=== PATIENT | male | born 1945 | race Caucasian/White ===

== ENCOUNTER 2020-07-16 14:03 | Emergency (ER) | payer MEDICARE, OTHER ==
--- NOTE | 2020-07-16 14:38 | EDM.PDOC ---
ED HPI GENERAL MEDICAL PROBLEM - General Chief Complaint: Syncope Stated Complaint: MEDICAL VIA [facility]TH Time Seen by Provider: 07/16/20 14:26 Source of Information: Reports: Patient, Family, RN Notes Reviewed History Limitations: Reports: No Limitations - History of Present Illness INITIAL COMMENTS - FREE TEXT/NARRATIVE: 75-year-old gentleman presents emergency department today following a syncopal event, he states he was home never had an event like this before. Head did have a couple of sips of beer just prior next thing he remembers is waking up in the ambulance. He denies any specific weakness denies any seizure history witnessed event states that he appeared to just pass out there was no visible movement of upper or lower extremities. EMS crew states by the time he arrived he was starting to follow commands and becoming responsive and orientated - Related Data Allergies Allergy/AdvReac Type Severity Reaction Status Date / Time No Known Allergies Allergy Verified 07/16/20 14:07 Home Meds: Home Meds Aspirin [Ecotrin EC] 81 mg PO DAILY 07/16/20 [History] Folic Acid 1 mg PO DAILY 07/16/20 [History] Ketoconazole [Ketoconazole 2%] 1 applic TOP DAILY 07/16/20 [History] Loratadine [Claritin] 10 mg PO DAILY 07/16/20 [History] Nortriptyline 25 mg PO BEDTIME 07/16/20 [History] Omeprazole Magnesium [Prilosec Otc] 20 mg PO DAILY 07/16/20 [History] Potassium Chloride 15 ml PO DAILY 07/16/20 [History] Verapamil [Verapamil SR (24 Hr)] 360 mg PO DAILY 07/16/20 [History] carBAMazepine [Carbamazepine] 200 mg PO BEDTIME 07/16/20 [History] diazePAM [Valium] 2.5 mg PO BID 07/16/20 [History] diazePAM [Valium] 5 mg PO BEDTIME 07/16/20 [History] hydrOXYzine HCL [Hydroxyzine HCl] 50 mg PO DAILY 07/16/20 [History] Past Medical History HEENT History: Reports: Impaired Vision Cardiovascular History: Reports: High Cholesterol, Hypertension Musculoskeletal History: Reports: Back Pain, Chronic Psychiatric History: Reports: Anxiety, Depression, PTSD - Past Surgical History GI Surgical History: Reports: Hernia, Abdominal Social & Family History - Alcohol Use Days Per Week of Alcohol Use: 7 Number of Drinks Per Day: 3 Total Drinks Per Week: 21 - Recreational Drug Use Recreational Drug Use: No ED ROS GENERAL - Review of Systems Review Of Systems: See Below Constitutional: Reports: No Symptoms HEENT: Reports: No Symptoms Respiratory: Reports: No Symptoms Cardiovascular: Reports: Syncope GI/Abdominal: Reports: No Symptoms ED EXAM, GENERAL - Physical Exam Exam: See Below Exam Limited By: No Limitations General Appearance: Alert, WD/WN, No Apparent Distress Respiratory/Chest: No Respiratory Distress, Lungs Clear, Normal Breath Sounds, No Accessory Muscle Use, Chest Non-Tender Cardiovascular: Regular Rate, Rhythm, No Murmur GI/Abdominal: Soft, Non-Tender Extremities: No Pedal Edema #1 Interpretation EKG Date: 07/16/20 Rhythm: NSR [place]: Normal P-Wave: Present QRS: Normal ST-T: Normal QT: Normal Comparison: NA - No Prior EKG Course - Vital Signs Last Recorded V/S: Last Vital Signs Temp 97.4 F 07/16/20 14:17 Pulse 54 L 07/16/20 15:20 Resp 11 L 07/16/20 15:20 BP 139/49 L 07/16/20 15:20 Pulse Ox 98 07/16/20 15:20 Orthostatic Blood Pressure [ 129/51 Standing] Orthostatic Blood Pressure [ 131/56 Sitting] - Orders/Labs/Meds Orders: Active Orders 24 hr Category Date Time Status Cardiac Monitoring [RC] .As Directed Care 07/16/20 14:35 Active EKG Documentation Completion [RC] ASDIRECTED Care 07/16/20 14:35 Active EKG 12 Lead [EK] Stat Ther 07/16/20 14:35 Ordered Labs: Laboratory Tests 07/16/20 07/16/20 07/16/20 Range/Units 14:49 14:49 14:49 WBC 7.4 (4.5-11.0) K/uL RBC 3.84 L (4.30-5.90) M/uL Hgb 11.6 L (12.0-15.0) g/dL Hct 34.2 L (40.0-54.0) % MCV 89 (80-98) fL MCH 30 (27-31) pg MCHC 34 (32-36) % Plt Count 264 (150-400) K/uL Neut % (Auto) 76 H (36-66) % Lymph % (Auto) 11 L (24-44) % [place] % (Auto) 10 H (2-6) % Eos % (Auto) 3 (2-4) % Baso % (Auto) 0 (0-1) % D-Dimer, Quantitative 473.21 (0.0-500.0) ng/mL Sodium 136 L (140-148) mmol/L Potassium 4.2 (3.6-5.2) mmol/L Chloride 96 L (100-108) mmol/L Carbon Dioxide 30 (21-32) mmol/L Anion Gap 14.2 H (5.0-14.0) mmol/L BUN 15 (7-18) mg/dL Creatinine 1.1 (0.8-1.3) mg/dL Est Cr Clr Drug Dosing 54.48 mL/min Estimated GFR (MDRD) > 60 (>60) Glucose 109 H (74-106) mg/dL Calcium 9.4 (8.5-10.1) mg/dL Troponin I < 0.017 (0.000-0.056) ng/mL Ethyl Alcohol mg/dL 07/16/20 Range/Units 14:49 WBC (4.5-11.0) K/uL RBC (4.30-5.90) M/uL Hgb (12.0-15.0) g/dL Hct (40.0-54.0) % MCV (80-98) fL MCH (27-31) pg MCHC (32-36) % Plt Count (150-400) K/uL Neut % (Auto) (36-66) % Lymph % (Auto) (24-44) % [place] % (Auto) (2-6) % Eos % (Auto) (2-4) % Baso % (Auto) (0-1) % D-Dimer, Quantitative (0.0-500.0) ng/mL Sodium (140-148) mmol/L Potassium (3.6-5.2) mmol/L Chloride (100-108) mmol/L Carbon Dioxide (21-32) mmol/L Anion Gap (5.0-14.0) mmol/L BUN (7-18) mg/dL Creatinine (0.8-1.3) mg/dL Est Cr Clr Drug Dosing mL/min Estimated GFR (MDRD) (>60) Glucose (74-106) mg/dL Calcium (8.5-10.1) mg/dL Troponin I (0.000-0.056) ng/mL Ethyl Alcohol < 3 mg/dL Departure - Departure Time of Disposition: 15:41 Disposition: Home, Self-Care 01 Condition: Fair Clinical Impression: Syncope Qualifiers: Syncope type: vasovagal syncope Qualified Code(s): R55 - Syncope and collapse Instructions: Syncope, [id number] Referrals: PCP,None [Primary Care Provider] - Forms: ED Department Discharge Additional Instructions: Continue with your regular medications please followup with your primary care provider in 3-5 days if not better, please call return to the emergency department with worsening of symptoms., Sepsis Event Note (ED) - Evaluation Sepsis Screening Result: No Definite Risk - Focused Exam Vital Signs: Vital Signs Temp Pulse Resp BP Pulse Ox 07/16/20 15:20 54 L 11 L 139/49 L 98 07/16/20 14:17 97.4 F 52 L 16 121/60 96 - My Orders Last 24 Hours: My Active Orders 07/16/20 14:35 Cardiac Monitoring [RC] .As Directed EKG Documentation Completion [RC] ASDIRECTED EKG 12 Lead [EK] Stat - Assessment/Plan Last 24 Hours: My Active Orders 07/16/20 14:35 Cardiac Monitoring [RC] .As Directed EKG Documentation Completion [RC] ASDIRECTED EKG 12 Lead [EK] Stat Plan: Assessment Acuity = acute Site and laterality = syncopal event Etiology = probably vasovagal Manifestations = none Location of injury = Home Lab values = hemoglobin low 11.6 consistent with normochromic anemia D-dimer normal for 73 troponin was negative alcohol was negative EKG demonstrates normal sinus rhythm Plan I did review lab work EKG results with him and follow-up with his primary care doctor in the next 3 to 5 days if no improvement This note was dictated using [id number] voice recognition software please call with any questions on syntax or grammar.
== END 2020-07-16 15:57 | disposition home or self-care (01) ==
LOC: JP.ED 14:03
DX: R55 Syncope and collapse (principal); I10 Essential (primary) hypertension; Z79.82 Long term (current) use of aspirin; Z79.899 Other long term (current) drug therapy
CPT/HCPCS: 36415; 80048; 80307; 84484; 85025; 85379; 93005; 99283; 99284-25

== ENCOUNTER 2020-07-26 06:32 | Day surgery (SDC) | payer OTHER ==
[2020-07-26] MEDS: Sodium Chloride 0.9% 10 ML Syringe FLUSH PRN (06:55)
--- NOTE | 2020-07-26 13:19 | OR ---
DATE OF PROCEDURE: 07/26/2020 SURGEON: Fannie Fitch MD POSTOPERATIVE CARE: Postoperative care will be provided mainly at the [address] [place] [address] [facility] in conjunction with [facility]. PREOPERATIVE DIAGNOSIS: Cataract, left eye. POSTOPERATIVE DIAGNOSIS: Cataract, left eye. PROCEDURE: Phacoemulsification with intraocular lens placement, left eye. ANESTHESIA: Topical and intracameral. ESTIMATED BLOOD LOSS: Minimal. COMPLICATIONS: None. PATHOLOGY SPECIMENS: None. SURGICAL FINDINGS: None. INDICATION FOR PROCEDURE: The patient is a 75-year-old male with history of a visually significant cataract in the left eye, which interfered with activities of daily living. This consisted of a nuclear sclerosis cataract. Following careful discussion of the risks, benefits and alternatives to cataract extraction with intraocular lens placement including blindness and , the patient elected to proceed, and informed, written consent was obtained prior to the procedure. DESCRIPTION OF THE PROCEDURE: The patient was previously identified, and a aayush placed above the left eye. All sources, including the patient, indicated that the left eye was the correct eye. The patient was subsequently taken to the operating room where standard monitors were applied. The patient was then prepped and draped in the usual sterile fashion for ophthalmic surgery. Attention was first directed at the 12 o'clock position where a paracentesis port was fashioned. Shugar solution followed by Viscoat was instilled into the eye. Attention was then directed to the 8:30 position where a triplanar incision was made in a near-clear manner using a keratome. A continuous capsulorrhexis was then made using a combination of the cystotome and Utrata forceps. Hydrodissection was achieved using a balanced salt solution, and the lens rotated nicely. Phacoemulsification was then done using a modified [id number]-bugnptd technique without complication. Phaco time was 5.50 CDE. The remaining cortex was removed using the irrigation/aspiration handpiece. Provisc was then instilled into the eye. A Technis lens, model DCB00, at 23.0 Diopters was then placed in the capsular bag using an [employer] injector. The remaining viscoelastic was removed using the irrigation/aspiration forceps. All wounds were then checked and found to be watertight. The lid speculum and drapes were removed. Maxitrol ointment was placed in the patient's left eye, and the eye was shielded. The patient tolerated the procedure well. The patient was instructed to follow up tomorrow. All needle and sponge counts were correct at the end of the procedure. There were no surgical findings. Fannie Fitch MD /[id number]
== END 2020-07-26 08:30 | disposition home or self-care (01) ==
LOC: JP.SDS 06:32
PROVIDERS: ATTEND Ophthalmology
DX: H25.12 Age-related nuclear cataract, left eye (principal)
CPT/HCPCS: 66984; V2632

== ENCOUNTER 2020-08-09 06:19 | Day surgery (SDC) | payer OTHER ==
[2020-08-09] MEDS: Sodium Chloride 0.9% 10 ML Syringe FLUSH PRN (07:14)
--- NOTE | 2020-08-09 15:06 | OR ---
DATE OF PROCEDURE: 08/09/2020 SURGEON: Fannie Fitch MD POSTOPERATIVE CARE: Postoperative care will be provided mainly at the [address] [place] [address] [facility] in conjunction with [facility]. PREOPERATIVE DIAGNOSIS: Cataract, right eye. POSTOPERATIVE DIAGNOSIS: Cataract, right eye. PROCEDURE: Phacoemulsification with intraocular lens placement, right eye. ANESTHESIA: Topical and intracameral. ESTIMATED BLOOD LOSS: Minimal. COMPLICATIONS: None. PATHOLOGY SPECIMENS: None. SURGICAL FINDINGS: None. INDICATION FOR PROCEDURE: The patient is a 75-year-old male with history of a visually significant cataract in the right eye, which interfered with activities of daily living. This consisted of a nuclear sclerosis cataract. Following careful discussion of the risks, benefits and alternatives to cataract extraction with intraocular lens placement including blindness and , the patient elected to proceed, and informed, written consent was obtained prior to the procedure. DESCRIPTION OF THE PROCEDURE: The patient was previously identified, and a aayush placed above the right eye. All sources, including the patient, indicated that the right eye was the correct eye. The patient was subsequently taken to the operating room where standard monitors were applied. The patient was then prepped and draped in the usual sterile fashion for ophthalmic surgery. Attention was first directed at the 12 o'clock position where a paracentesis port was fashioned. Shugar solution followed by Viscoat was instilled into the eye. Attention was then directed to the 8:30 position where a triplanar incision was made in a near-clear manner using a keratome. A continuous capsulorrhexis was then made using a combination of the cystotome and Utrata forceps. Hydrodissection was achieved using a balanced salt solution, and the lens rotated nicely. Phacoemulsification was then done using a modified [id number]-aol-[id number] technique without complication. Phaco time was 5.51 CDE. The remaining cortex was removed using the irrigation/aspiration handpiece. Provisc was then instilled into the eye. A Technis lens, model DCB00, at 23.0 diopters was then placed in the capsular bag using an [place] injector. The remaining viscoelastic was removed using the irrigation/aspiration forceps. All wounds were then checked and found to be watertight. The lid speculum and drapes were removed. Maxitrol ointment was placed in the patient's right eye, and the eye was shielded. The patient tolerated the procedure well. The patient was instructed to follow up tomorrow. All needle and sponge counts were correct at the end of the procedure. Fannie Fitch MD /[id number]
== END 2020-08-09 08:06 | disposition home or self-care (01) ==
LOC: JP.SDS 06:19
PROVIDERS: ATTEND Ophthalmology
DX: H26.9 Unspecified cataract (principal); K21.9 Gastro-esophageal reflux disease without esophagitis; Z88.8 Allergy status to other drugs, medicaments and biological substances
CPT/HCPCS: V2632

== ENCOUNTER 2020-08-28 17:10 | Emergency (ER) | payer OTHER ==
--- NOTE | 2020-08-28 18:16 | EDM.PDOC ---
ED HPI GENERAL MEDICAL PROBLEM - General Chief Complaint: General Stated Complaint: FEET AND HANDS ARE NUMB Time Seen by Provider: 08/28/20 17:45 Source of Information: Reports: Patient, Family History Limitations: Reports: No Limitations - History of Present Illness INITIAL COMMENTS - FREE TEXT/NARRATIVE: 75-year-old combat has been treated with Valium chronically for PTSD and anxiety, has an appointment coming up electronically in 4 days and only has 1 dose of medication left. He became anxious about this today, started hyperventilating and developed some hand and foot numbness. He feels somewhat better now but called his son to bring him in to be evaluated. Palpitations but no chest pain. He now feels better that he is here. Onset: Other (Symptoms are chronic, intermittent) Location: Reports: Generalized (Mostly numbness in his hands and feet are what worried him today) - Related Data Allergies Allergy/AdvReac Type Severity Reaction Status Date / Time No Known Allergies Allergy Verified 08/28/20 17:26 Home Meds: Home Meds Aspirin [Ecotrin EC] 81 mg PO DAILY 07/16/20 [History] Folic Acid 1 mg PO DAILY 07/16/20 [History] Ketoconazole [Ketoconazole 2%] 1 applic TOP DAILY 07/16/20 [History] Loratadine [Claritin] 10 mg PO DAILY 07/16/20 [History] Nortriptyline 25 mg PO DAILY 07/16/20 [History] Omeprazole Magnesium [Prilosec Otc] 20 mg PO DAILY 07/16/20 [History] Potassium Chloride 15 ml PO DAILY 07/16/20 [History] Verapamil [Verapamil SR (24 Hr)] 180 mg PO BID 07/16/20 [History] carBAMazepine [Carbamazepine] 200 mg PO BEDTIME 07/16/20 [History] diazePAM [Valium] 5 mg PO BID 07/16/20 [History] hydrOXYzine HCL [Hydroxyzine HCl] 50 mg PO DAILY 07/16/20 [History] Simvastatin [Zocor] 10 mg PO BEDTIME 08/07/20 [History] Past Medical History HEENT History: Reports: Cataract, Impaired Vision Cardiovascular History: Reports: High Cholesterol, Hypertension Gastrointestinal History: Reports: GERD Musculoskeletal History: Reports: Back Pain, Chronic, Other (See Below) Other Musculoskeletal History: right hip pain Psychiatric History: Reports: Anxiety, Depression, PTSD Dermatologic History: Reports: Other (See Below) Other Dermatologic History: rash - Infectious Disease History Infectious Disease History: Reports: Chicken Pox, Measles - Past Surgical History HEENT Surgical History: Reports: Cataract Surgery Cardiovascular Surgical History: Reports: None GI Surgical History: Reports: Hernia, Abdominal Musculoskeletal Surgical History: Reports: None Social & Family History - Caffeine Use Caffeine Use: Reports: Coffee - Recreational Drug Use Recreational Drug Use: No ED ROS GENERAL - Review of Systems Review Of Systems: See Below Constitutional: Denies: Fever, Chills HEENT: Denies: Vision Change Cardiovascular: Reports: Palpitations. Denies: Chest Pain GI/Abdominal: Denies: Abdominal Pain, Nausea, Vomiting Skin: Denies: Diaphoresis Neurological: Reports: Paresthesia (Hands and feet) Psychiatric: Reports: Anxiety, Other (PTSD) ED EXAM, GENERAL - Physical Exam Exam: See Below Exam Limited By: No Limitations General Appearance: Alert, Anxious. No: Mild Distress Eye Exam: Bilateral Eye: Normal Inspection Head: Atraumatic Neck: Supple, Non-Tender Respiratory/Chest: Lungs Clear Cardiovascular: Regular Rate, Rhythm. No: Extra Beats GI/Abdominal: Non-Tender Extremities: Normal Inspection, No Pedal Edema Neurological: Alert, Oriented, No Motor/Sensory Deficits Course - Vital Signs Last Recorded V/S: Last Vital Signs Temp 99.7 F 08/28/20 17:33 Pulse 82 08/28/20 17:33 Resp 16 08/28/20 17:33 BP 164/72 H 08/28/20 17:33 Pulse Ox 96 08/28/20 17:33 - Re-Assessments/Exams Free Text/Narrative Re-Assessment/Exam: 08/28/20 18:36 Patient was given 20 additional doses of Valium to take 1 twice daily which should get him through to his mail order medications. A BICYCLE TECHNICIAN search was done on the patient and he is very compliant with medicine. Departure - Departure Time of Disposition: 18:27 Disposition: Home, Self-Care 01 Clinical Impression: Chronic anxiety - Discharge Information Instructions: Managing Anxiety, Adult Referrals: Narda Laurent DIRECTOR [employer] [Primary Care Provider] - Forms: ED Department Discharge Care Plan Goals: Continue your Valium as directed, and follow-up as scheduled. Return if worsenin g despite treatment. Sepsis Event Note (ED) - Evaluation Sepsis Screening Result: No Definite Risk - Focused Exam Vital Signs: Vital Signs Temp Pulse Resp BP Pulse Ox 08/28/20 17:33 99.7 F 82 16 164/72 H 96
== END 2020-08-28 18:27 | disposition home or self-care (01) ==
LOC: JP.ED 17:10
DX: F41.9 Anxiety disorder, unspecified (principal); E78.00 Pure hypercholesterolemia, unspecified; I10 Essential (primary) hypertension; Z79.82 Long term (current) use of aspirin; Z79.899 Other long term (current) drug therapy; K21.9 Gastro-esophageal reflux disease without esophagitis
CPT/HCPCS: 99283

== ENCOUNTER 2020-10-25 14:42 | Emergency (ER) | payer OTHER ==
[2020-10-25] MEDS ORDERED: Ondansetron 4 MG/2 ML SDV IVPUSH ONE (14:53)
[2020-10-25] MEDS ORDERED: Sodium Chloride 0.9% 1,000 ML IV SCH (15:30)
--- NOTE | 2020-10-25 15:40 | EDM.PDOC ---
ED HPI GENERAL MEDICAL PROBLEM - General Chief Complaint: Syncope Stated Complaint: MEDICAL [facility]IA [facility] Time Seen by Provider: 10/25/20 15:37 Source of Information: Reports: Patient History Limitations: Reports: No Limitations - History of Present Illness INITIAL COMMENTS - FREE TEXT/NARRATIVE: pt arrived by ambulamce. He was found on the sidewalk not reponding normally. No one knows how long he had been there. He was vomiting on arrival. Onset: Today, Sudden Duration: Hour(s): Location: Reports: Other (pt fell and hit his head on the cement. ) Associated Symptoms: Reports: Confusion, Diaphoresis, Nausea/Vomiting, Weakness Headache Pain Score (Numeric/FACES): 2 - Related Data Allergies Allergy/AdvReac Type Severity Reaction Status Date / Time No Known Allergies Allergy Verified 10/25/20 14:55 Home Meds: Home Meds Aspirin [Ecotrin EC] 81 mg PO DAILY 07/16/20 [History] Folic Acid 1 mg PO DAILY 07/16/20 [History] Ketoconazole [Ketoconazole 2%] 1 applic TOP DAILY 07/16/20 [History] Nortriptyline 25 mg PO DAILY 07/16/20 [History] Omeprazole Magnesium [Prilosec Otc] 20 mg PO DAILY 07/16/20 [History] Potassium Chloride 15 ml PO DAILY 07/16/20 [History] Verapamil [Verapamil SR (24 Hr)] 180 mg PO BID 07/16/20 [History] carBAMazepine [Carbamazepine] 200 mg PO BEDTIME 07/16/20 [History] diazePAM [Valium.] 5 mg PO BID 07/16/20 [History] hydrOXYzine HCL [Hydroxyzine HCl] 50 mg PO DAILY 07/16/20 [History] Simvastatin [Zocor] 10 mg PO BEDTIME 08/07/20 [History] Past Medical History HEENT History: Reports: Cataract, Impaired Vision Cardiovascular History: Reports: High Cholesterol, Hypertension Gastrointestinal History: Reports: GERD Musculoskeletal History: Reports: Back Pain, Chronic, Other (See Below) Other Musculoskeletal History: right hip pain Neurological History: Reports: Concussion Psychiatric History: Reports: Anxiety, Depression, PTSD Dermatologic History: Reports: Other (See Below) Other Dermatologic History: rash - Infectious Disease History Infectious Disease History: Reports: Chicken Pox, Measles - Past Surgical History HEENT Surgical History: Reports: Cataract Surgery Cardiovascular Surgical History: Reports: None GI Surgical History: Reports: Hernia, Abdominal Musculoskeletal Surgical History: Reports: None Social & Family History - Tobacco Use Tobacco Use Status *Q: Current Every Day Tobacco User Years of Tobacco use: 45 Packs/Tins Daily: 1 Used Tobacco, but Quit: No Second Hand Smoke Exposure: No - Caffeine Use Caffeine Use: Reports: Coffee, Soda - Alcohol Use Days Per Week of Alcohol Use: 7 Number of Drinks Per Day: 2 Total Drinks Per Week: 14 - Recreational Drug Use Recreational Drug Use: No ED ROS GENERAL - Review of Systems Review Of Systems: See Below Constitutional: Reports: Decreased Appetite HEENT: Reports: No Symptoms Respiratory: Reports: No Symptoms Cardiovascular: Reports: No Symptoms Endocrine: Reports: No Symptoms GI/Abdominal: Reports: Nausea, Vomiting : Reports: No Symptoms Musculoskeletal: Reports: No Symptoms Skin: Reports: No Symptoms Neurological: Reports: Headache, Trouble Speaking, Difficulty Walking, Weakness ED EXAM, NEURO - Physical Exam Exam: See Below Text/Narrative:: pt is a very lethargic pt with ahistory of being found lying on the cement in h is yard. He was not able to answer questions well. He does have a history of a seizure disorder. He had a juntional rhythm with a rate of 50 when he arrive. He has gradually gotten much better He is able to be up and ambulating. Exam Limited By: No Limitations General Appearance: Alert, Other (pupils equal and reactive) Ears: Normal TMs Nose: Normal Inspection Throat/Mouth: Normal Inspection Head Exam: Atraumatic Neck: Normal Inspection Respiratory/Chest: No Respiratory Distress Cardiovascular: Regular Rate, Rhythm, Other (pt is a juntioal rhythm) GI/Abdominal: Soft (Male) Exam: Deferred Rectal (Males) Exam: Deferred Neurological: Alert, Other (pt is obtunded. ) Back Exam: Normal Inspection Extremities: Normal Inspection Psychiatric: Anxious #1 Interpretation EKG Interpretation Comments: ekg shows a juntional rhythm with no acute changes. Course - Vital Signs Last Recorded V/S: Last Vital Signs Temp 36.4 C 10/25/20 15:05 Pulse 64 10/25/20 18:19 Resp 14 10/25/20 18:19 BP 136/59 L 10/25/20 18:19 Pulse Ox 92 L 10/25/20 16:18 - Orders/Labs/Meds Orders: Active Orders 24 hr Category Date Time Status EKG Documentation Completion [RC] ASDIRECTED Care 10/25/20 14:52 Active CARBAMAZEPINE(TEGRETOL),S Stat Lab 10/25/20 14:50 Received UA W/MICROSCOPIC [URIN] Urgent Lab 10/25/20 14:52 Ordered Sodium Chloride 0.9% [Normal Saline] 1,000 ml Med 10/25/20 15:30 Active IV ASDIRECTED EKG 12 Lead [EK] Routine Ther 10/25/20 14:52 Ordered Medication Orders Sodium Chloride (Normal Saline) 1,000 mls @ 999 mls/hr IV ASDIRECTED MEAGAN Last Admin: 10/25/20 15:39 Dose: 999 mls/hr Documented by: HYUN Labs: Laboratory Tests 10/25/20 10/25/20 10/25/20 Range/Units 14:50 14:50 14:50 WBC 11.6 H (4.5-11.0) K/uL RBC 4.35 (4.30-5.90) M/uL Hgb 13.4 (12.0-15.0) g/dL Hct 37.7 L (40.0-54.0) % MCV 87 (80-98) fL MCH 31 (27-31) pg MCHC 36 (32-36) % Plt Count 269 (150-400) K/uL Neut % (Auto) 80.8 H (36-66) % Lymph % (Auto) 11.3 L (24-44) % [place] % (Auto) 7.1 H (2-6) % Eos % (Auto) 0.6 L (2-4) % Baso % (Auto) 0.2 (0-1) % Sodium 129 L (140-148) mmol/L Potassium 4.2 (3.6-5.2) mmol/L Chloride 89 L (100-108) mmol/L Carbon Dioxide 26 (21-32) mmol/L Anion Gap 18.2 H (5.0-14.0) mmol/L BUN 11 (7-18) mg/dL Creatinine 1.2 (0.8-1.3) mg/dL Est Cr Clr Drug Dosing 51.27 mL/min Estimated GFR (MDRD) 59 L (>60) Glucose 112 H (74-106) mg/dL POC Glucose (74-106) mg/dL Calcium 8.7 (8.5-10.1) mg/dL Total Bilirubin 0.6 (0.2-1.0) mg/dL AST 31 (15-37) U/L ALT 32 (12-78) U/L Alkaline Phosphatase 123 H (46-116) U/L Troponin I < 0.017 (0.000-0.056) ng/mL Total Protein 7.3 (6.4-8.2) g/dL Albumin 4.2 (3.4-5.0) g/dL Globulin 3.1 (2.3-3.5) g/dL Albumin/Globulin Ratio 1.4 (1.2-2.2) 10/25/20 Range/Units 14:59 WBC (4.5-11.0) K/uL RBC (4.30-5.90) M/uL Hgb (12.0-15.0) g/dL Hct (40.0-54.0) % MCV (80-98) fL MCH (27-31) pg MCHC (32-36) % Plt Count (150-400) K/uL Neut % (Auto) (36-66) % Lymph % (Auto) (24-44) % [place] % (Auto) (2-6) % Eos % (Auto) (2-4) % Baso % (Auto) (0-1) % Sodium (140-148) mmol/L Potassium (3.6-5.2) mmol/L Chloride (100-108) mmol/L Carbon Dioxide (21-32) mmol/L Anion Gap (5.0-14.0) mmol/L BUN (7-18) mg/dL Creatinine (0.8-1.3) mg/dL Est Cr Clr Drug Dosing mL/min Estimated GFR (MDRD) (>60) Glucose (74-106) mg/dL POC Glucose 113 H (74-106) mg/dL Calcium (8.5-10.1) mg/dL Total Bilirubin (0.2-1.0) mg/dL AST (15-37) U/L ALT (12-78) U/L Alkaline Phosphatase (46-116) U/L Troponin I (0.000-0.056) ng/mL Total Protein (6.4-8.2) g/dL Albumin (3.4-5.0) g/dL Globulin (2.3-3.5) g/dL Albumin/Globulin Ratio (1.2-2.2) Meds: Medications Generic Name Dose Route Start Last Admin Trade Name Lizet PRN Reason Stop Dose Admin Sodium Chloride 1,000 mls @ 999 mls/hr 10/25/20 15:30 10/25/20 15:39 Normal Saline IV 999 mls/hr ASDIRECTED MEAGAN Administration Discontinued Medications Generic Name Dose Route Start Last Admin Trade Name Lizet PRN Reason Stop Dose Admin Ondansetron HCl 4 mg 10/25/20 14:53 10/25/20 15:36 Ondansetron 4 Mg/2 Ml Sdv IVPUSH 10/25/20 14:54 4 mg ONETIME ONE Administration Departure - Departure Time of Disposition: 18:35 Disposition: Home, Self-Care 01 Condition: Fair Clinical Impression: Head contusion, Seizure, Junctional cardiac arrhythmia - Discharge Information Referrals: PCP,None [Primary Care Provider] - Forms: ED Department Discharge Care Plan Goals: low activity, son will check on the pt. will notify pt of the tegretol level. appt with usual Dr in the next week. Sepsis Event Note (ED) - Evaluation Sepsis Screening Result: No Definite Risk - Focused Exam Vital Signs: Vital Signs Temp Pulse Resp BP Pulse Ox 10/25/20 18:19 64 14 136/59 L 10/25/20 17:19 55 L 18 126/70 10/25/20 16:18 47 L 13 95/56 L 92 L 10/25/20 15:48 48 L 13 95/50 L 98 10/25/20 15:18 51 L 12 90/51 L 99 10/25/20 15:05 36.4 C 48 L 12 85/49 L 96 10/25/20 14:55 36.4 C 48 L 12 85/49 L 96 - My Orders Last 24 Hours: My Active Orders 10/25/20 14:50 CARBAMAZEPINE(TEGRETOL),S Stat 10/25/20 14:52 EKG Documentation Completion [RC] ASDIRECTED UA W/MICROSCOPIC [URIN] Urgent EKG 12 Lead [EK] Routine 10/25/20 15:30 Sodium Chloride 0.9% [Normal Saline] 1,000 ml IV ASDIRECTED - Assessment/Plan Last 24 Hours: My Active Orders 10/25/20 14:50 CARBAMAZEPINE(TEGRETOL),S Stat 10/25/20 14:52 EKG Documentation Completion [RC] ASDIRECTED UA W/MICROSCOPIC [URIN] Urgent EKG 12 Lead [EK] Routine 10/25/20 15:30 Sodium Chloride 0.9% [Normal Saline] 1,000 ml IV ASDIRECTED
--- NOTE | 2020-10-25 15:59 | CT ---
Head wo Cont CLINICAL HISTORY: Nonresponsive COMPARISON: None TECHNIQUE: Transverse scans were obtained from the base of the skull through the vertex without IV contrast on a multislice, multidetector CT scanner. Auto dosage reduction and iterative reconstruction techniques employed. FINDINGS: No focal abnormal parenchymal densities are identified. There is moderate periventricular lucency bilaterally.. There is no mass effect, hemorrhage, or extraaxial collection. The basal cisterns and sulci over the convexities are prominent. The ventricles are normal for age. IMPRESSION: No acute intracranial process Moderate atrophic changes Chronic ischemic microvascular changes
== END 2020-10-25 19:05 | disposition home or self-care (01) ==
LOC: JP.ED 14:42
DX: S00.83XA Contusion of other part of head, initial encounter (principal); R56.9 Unspecified convulsions; I49.9 Cardiac arrhythmia, unspecified; E78.00 Pure hypercholesterolemia, unspecified; I10 Essential (primary) hypertension; K21.9 Gastro-esophageal reflux disease without esophagitis; Z72.0 Tobacco use; Z79.899 Other long term (current) drug therapy; Z79.82 Long term (current) use of aspirin; W18.09XA Striking against other object with subsequent fall, initial encounter; Y92.480 Sidewalk as the place of occurrence of the external cause
CPT/HCPCS: 36415; 70450; 80053; 80156; 82947; 84484; 85025; 93005; 96374; 99285; J2405; J7030

== ENCOUNTER 2020-12-12 21:52 | Emergency (ER) | payer OTHER ==
--- NOTE | 2020-12-12 22:26 | EDM.PDOCBH ---
ED HPI GENERAL MEDICAL PROBLEM - General Chief Complaint: Behavioral/Psych Stated Complaint: MEDICAL [facility]IA [facility] Time Seen by Provider: 12/12/20 22:10 Source of Information: Reports: Patient, EMS, Police History Limitations: Reports: Other (Psychosis) - History of Present Illness INITIAL COMMENTS - FREE TEXT/NARRATIVE: Philipp is a 75-year-old male presenting to the ED with EMS and law enforcement for evaluation of homicidal ideation. The patient is a [place] vet and suffers from dementia as well as PTSD. Today he was seen individuals outside his home while mowing his lawn that he is convinced are trying to kill him by cutting his gas line causing gas dispel in his home. He has also convinced that they have robbed him trying to steal his can am and slingshot out of his garage. The patient [place]. He had told law enforcement that if he saw the people again he would shoot him. He does have guns at his disposal at home. He also made comments that he has been being exposed to agent orange and nerve gas. He says that his air purifier was putting out a green haze trying to clear the air of the nerve gas. The patient is easily agitated and amplifies his aggressive behavior but can be redirected through discussion. He has received some assessments of his dementia at the [facility] which also noted that he had fairly aggressive behavior. - Related Data Allergies Allergy/AdvReac Type Severity Reaction Status Date / Time No Known Allergies Allergy Verified 10/25/20 14:55 Home Meds: Home Meds Aspirin [Ecotrin EC] 81 mg PO DAILY 07/16/20 [History] Folic Acid 1 mg PO DAILY 07/16/20 [History] Ketoconazole [Ketoconazole 2%] 1 applic TOP DAILY 07/16/20 [History] Nortriptyline 25 mg PO DAILY 07/16/20 [History] Omeprazole Magnesium [Prilosec Otc] 20 mg PO DAILY 07/16/20 [History] Potassium Chloride 15 ml PO DAILY 07/16/20 [History] Verapamil [Verapamil SR (24 Hr)] 180 mg PO BID 07/16/20 [History] carBAMazepine [Carbamazepine] 200 mg PO BEDTIME 07/16/20 [History] hydrOXYzine HCL [Hydroxyzine HCl] 50 mg PO DAILY 07/16/20 [History] Simvastatin [Zocor] 10 mg PO BEDTIME 08/07/20 [History] Past Medical History HEENT History: Reports: Cataract, Impaired Vision Cardiovascular History: Reports: High Cholesterol, Hypertension Gastrointestinal History: Reports: GERD Musculoskeletal History: Reports: Back Pain, Chronic, Other (See Below) Other Musculoskeletal History: right hip pain Neurological History: Reports: Concussion Psychiatric History: Reports: Anxiety, Depression, PTSD Dermatologic History: Reports: Other (See Below) Other Dermatologic History: rash - Infectious Disease History Infectious Disease History: Reports: Chicken Pox, Measles - Past Surgical History HEENT Surgical History: Reports: Cataract Surgery Cardiovascular Surgical History: Reports: None GI Surgical History: Reports: Hernia, Abdominal Musculoskeletal Surgical History: Reports: None Social & Family History - Caffeine Use Caffeine Use: Reports: Coffee, Soda ED ROS GENERAL - Review of Systems Review Of Systems: Unable To Obtain Reason Not Obtained: Patient is very agitated and paranoid. Not wanting to answer. Respiratory: Reports: Shortness of Breath Psychiatric: Reports: Agitation, Anxiety, Homicidal Ideation ED EXAM, BEHAVIORAL HEALTH - Physical Exam Exam: See Below Exam Limited By: Combative/Threatening General Appearance: Alert, Anxious Eye Exam: Bilateral Eye: EOMI, PERRL Throat/Mouth: Normal Voice, No Airway Compromise Head: Atraumatic, Normocephalic Neck: Normal Inspection, Supple, Non-Tender, Full Range of Motion Respiratory/Chest: No Respiratory Distress, Lungs Clear, Normal Breath Sounds Cardiovascular: Normal Peripheral Pulses, Regular Rate, Rhythm, No Murmur GI/Abdominal: Normal Bowel Sounds, Soft, Non-Tender Back Exam: Normal Inspection Extremities: Normal Inspection, Normal Range of Motion Neurological: Alert, No Motor/Sensory Deficits, Oriented x 3 Psychiatric: Alert, Restless, Agitated, Homicidal Thoughts, Other (Patient is convinced that somebody has robbed him and that people are trying to kill him. He is making comments that if he sees them again he will shoot them. He does have access to weapons in his home. He is very easily agitated.) Skin Exam: Warm, Dry ED LACERATION PROCEDURES - Laceration/Wound Repair Middle Occipital Head Lac/wound length in cm: 3.8 Appearance: Subcutaneous Distal NVT: Neuro & Vascular Intact Skin Prep: Saline Exploration/Debridement/Repair: Wound Explored, In a Bloodless Field, Explored to Base Closed with: Belle # of Sutures: 9 Sterile Dressing Applied: Nurse Tetanus Status Addressed: Yes Complications: No COURSE, BEHAVIORAL HEALTH COMP - Course Vital Signs: Last Vital Signs Temp 36.7 C 12/13/20 07:07 Pulse 70 12/13/20 07:07 Resp 15 12/13/20 07:07 BP 159/72 H 12/13/20 07:07 Pulse Ox 97 12/13/20 07:07 Orders, Labs, Meds: Laboratory Tests 12/12/20 12/12/20 12/12/20 Range/Units 22:17 22:17 22:21 WBC 6.9 (4.5-11.0) K/uL RBC 4.10 L (4.30-5.90) M/uL Hgb 12.4 (12.0-15.0) g/dL Hct 35.1 L (40.0-54.0) % MCV 86 (80-98) fL MCH 30 (27-31) pg MCHC 35 (32-36) % Plt Count 260 (150-400) K/uL Neut % (Auto) 70.3 H (36-66) % Lymph % (Auto) 20.0 L (24-44) % [place] % (Auto) 8.0 H (2-6) % Eos % (Auto) 1.3 L (2-4) % Baso % (Auto) 0.4 (0-1) % Sodium (140-148) mmol/L Potassium (3.6-5.2) mmol/L Chloride (100-108) mmol/L Carbon Dioxide (21-32) mmol/L Anion Gap (5.0-14.0) mmol/L BUN (7-18) mg/dL Creatinine (0.8-1.3) mg/dL Est Cr Clr Drug Dosing Estimated GFR (MDRD) (>60) Glucose (74-106) mg/dL Calcium (8.5-10.1) mg/dL Total Bilirubin (0.2-1.0) mg/dL AST (15-37) U/L ALT (12-78) U/L Alkaline Phosphatase (46-116) U/L Total Protein (6.4-8.2) g/dL Albumin (3.4-5.0) g/dL Globulin (2.3-3.5) g/dL Albumin/Globulin Ratio (1.2-2.2) TSH, Ultra Sensitive (0.358-3.740) uIU/mL Urine Color Yellow (YELLOW) Urine Appearance Clear (CLEAR) Urine pH 6.5 (5.0-8.0) Ur Specific [place] 1.010 (1.008-1.030) Urine Protein Negative (NEGATIVE) mg/dL Urine Glucose (UA) Negative (NEGATIVE) mg/dL Urine Ketones Negative (NEGATIVE) mg/dL Urine Occult Blood Trace-intact H (NEGATIVE) Urine Nitrite Negative (NEGATIVE) Urine Bilirubin Negative (NEGATIVE) Urine Urobilinogen 0.2 (0.2-1.0) EU/dL Ur Leukocyte Esterase Negative (NEGATIVE) Urine RBC 0-5 (0-5) Urine WBC Not seen (0-5) Ur Epithelial Cells Rare Amorphous Sediment Not seen Urine Bacteria Not seen Urine Mucus Not seen Urine Opiates Screen Negative (NEGATIVE) Ur Oxycodone Screen Negative (NEGATIVE) Urine Methadone Screen Negative (NEGATIVE) Ur Propoxyphene Screen Negative (NEGATIVE) Ur Barbiturates Screen Negative (NEGATIVE) Ur Tricyclics Screen Presumptive positive H (NEGATIVE) Ur Phencyclidine Scrn Negative (NEGATIVE) Ur Amphetamine Screen Negative (NEGATIVE) U Methamphetamines Scrn Negative (NEGATIVE) Urine MDMA Screen Negative (NEGATIVE) U Benzodiazepines Scrn Negative (NEGATIVE) U Cocaine Metab Screen Negative (NEGATIVE) U Marijuana (THC) Screen Negative (NEGATIVE) Ethyl Alcohol mg/dL SARS CoV-2 RNA Rapid GRAYSON 12/12/20 12/12/20 12/13/20 Range/Units 22:21 22:21 00:37 WBC (4.5-11.0) K/uL RBC (4.30-5.90) M/uL Hgb (12.0-15.0) g/dL Hct (40.0-54.0) % MCV (80-98) fL MCH (27-31) pg MCHC (32-36) % Plt Count (150-400) K/uL Neut % (Auto) (36-66) % Lymph % (Auto) (24-44) % [place] % (Auto) (2-6) % Eos % (Auto) (2-4) % Baso % (Auto) (0-1) % Sodium 128 L (140-148) mmol/L Potassium 4.2 (3.6-5.2) mmol/L Chloride 91 L (100-108) mmol/L Carbon Dioxide 28 (21-32) mmol/L Anion Gap 13.2 (5.0-14.0) mmol/L BUN 13 (7-18) mg/dL Creatinine 0.8 (0.8-1.3) mg/dL Est Cr Clr Drug Dosing TNP Estimated GFR (MDRD) > 60 (>60) Glucose 82 (74-106) mg/dL Calcium 8.6 (8.5-10.1) mg/dL Total Bilirubin 0.4 (0.2-1.0) mg/dL AST 22 (15-37) U/L ALT 26 (12-78) U/L Alkaline Phosphatase 114 (46-116) U/L Total Protein 7.1 (6.4-8.2) g/dL Albumin 4.0 (3.4-5.0) g/dL Globulin 3.1 (2.3-3.5) g/dL Albumin/Globulin Ratio 1.3 (1.2-2.2) TSH, Ultra Sensitive 2.042 (0.358-3.740) uIU/mL Urine Color (YELLOW) Urine Appearance (CLEAR) Urine pH (5.0-8.0) Ur Specific [place] (1.008-1.030) Urine Protein (NEGATIVE) mg/dL Urine Glucose (UA) (NEGATIVE) mg/dL Urine Ketones (NEGATIVE) mg/dL Urine Occult Blood (NEGATIVE) Urine Nitrite (NEGATIVE) Urine Bilirubin (NEGATIVE) Urine Urobilinogen (0.2-1.0) EU/dL Ur Leukocyte Esterase (NEGATIVE) Urine RBC (0-5) Urine WBC (0-5) Ur Epithelial Cells Amorphous Sediment Urine Bacteria Urine Mucus Urine Opiates Screen (NEGATIVE) Ur Oxycodone Screen (NEGATIVE) Urine Methadone Screen (NEGATIVE) Ur Propoxyphene Screen (NEGATIVE) Ur Barbiturates Screen (NEGATIVE) Ur Tricyclics Screen (NEGATIVE) Ur Phencyclidine Scrn (NEGATIVE) Ur Amphetamine Screen (NEGATIVE) U Methamphetamines Scrn (NEGATIVE) Urine MDMA Screen (NEGATIVE) U Benzodiazepines Scrn (NEGATIVE) U Cocaine Metab Screen (NEGATIVE) U Marijuana (THC) Screen (NEGATIVE) Ethyl Alcohol 46 mg/dL SARS CoV-2 RNA Rapid G[place] Negative Medications Discontinued Medications Generic Name Dose Route Start Last Admin Trade Name Freq PRN Reason Stop Dose Admin Diazepam 5 mg 12/12/20 23:33 12/13/20 02:12 Diazepam 5 Mg Tab PO 12/12/20 23:34 Not Given ONETIME ONE Diphenhydramine HCl 50 mg 12/12/20 23:05 12/12/20 23:36 Diphenhydramine 50 Mg/Ml Sdv IM 12/12/20 23:06 Not Given ONETIME ONE Diphenhydramine HCl 50 mg 12/12/20 23:55 12/13/20 00:52 Diphenhydramine 50 Mg/Ml Sdv IM 12/12/20 23:56 50 mg ONETIME ONE Administration Haloperidol Lactate 5 mg 12/12/20 23:05 12/12/20 23:36 Haloperidol Lactate 5 Mg/Ml Sdv IM 12/12/20 23:06 Not Given ONETIME ONE Haloperidol Lactate 5 mg 12/12/20 23:55 12/13/20 00:55 Haloperidol Lactate 5 Mg/Ml Sdv IM 12/12/20 23:56 5 mg ONETIME ONE Administration Hydroxyzine HCl 25 mg 12/12/20 23:33 12/13/20 02:12 Hydroxyzine Hcl 25 Mg Tab PO 12/12/20 23:34 Not Given ONETIME ONE Lorazepam 2 mg 12/12/20 23:05 12/12/20 23:36 Lorazepam 2 Mg/Ml Sdv IM 12/12/20 23:06 Not Given ONETIME ONE Lorazepam 2 mg 12/12/20 23:55 12/13/20 00:55 Lorazepam 2 Mg/Ml Sdv IM 12/12/20 23:56 2 mg ONETIME STA Administration Olanzapine 10 mg 12/12/20 23:05 12/12/20 23:36 Olanzapine 10 Mg Vial IM 12/12/20 23:06 Not Given ONETIME ONE Olanzapine 10 mg 12/12/20 23:55 12/13/20 00:50 Olanzapine 10 Mg Vial IM 12/12/20 23:56 10 mg ONETIME ONE Administration Re-Assessment/Re-Exam: Crit of 35.1 and a platelet count of 260,000. Patient has mild hyponatremia with a sodium of 128, potassium 4.2, chloride of 91 with a bicarbonate of 28, BUN of 13, creatinine of 0.8 and a glucose of 82. Patient's liver enzymes are normal. Urinalysis is negative. Urine drug screen is only positive for tricyclic's. Patient's ethanol is 46. COVID-19 is negative. I initially had ordered olanzapine 10 mg IM, lorazepam 2 mg IM, haloperidol 5 mg IM, and diphenhydramine 50 mg IM to help the patient with sedation and sleep. He refused these but did state that he would take diazepam and hydroxyzine. I canceled the order for the above medications and ordered diazepam 5 mg and hydroxyzine 25 mg and now the patient is refusing this to so with a show of force we will administer the first round there was ordered including the olanzapine, haloperidol, lorazepam, and diphenhydramine IM. Law enforcement was called to assist with this. I discussed the case with Dr. Terrazas, psychiatrist at the [facility] who states that we should try to transfer the patient to [facility] as they have a reciprocity for the 72-hour hold with the [facility]. Unfortunately the [facility] does not have a reciprocity and if the patient decided at the state line that he wanted to leave the ambulance, there would be nothing to stop him from eloping before he arrives. I did discuss the case with the triage nurse from [facility] and they have no availability for inpatient psychiatry so they cannot accept the patient. I did talk to the [facility] in [place] who stated the patient has previously been treated and at the [facility] [place] and they have inpatient psych availability. I discussed the case with the [facility] in [place] who has faxed me the form to fill out for consideration for admission there. In the meantime, the patient is on a 72-hour hold which was initiated at 2230 hrs. on 12/12/2020. He is growing increasingly mistrusting of the medical providers including nurses and the keno writer. 12/13/2020 05:45 patient fell while standing in the room landing on his back and striking the back of his head on the ground. There was no loss of consciousness. It appears the patient got out of his bed to urinate with urine all over the floor. Does not appear that the patient fell in the urine. He did sustain a laceration to the occipital scalp measuring 3.8 cm. This was closed using surgical belle requiring 9. We will get a CT of the brain to ensure that nothing happened due to the fall. He has not complaining of any other injuries or pain. Neurologic reassessment of the patient shows intact cranial nerves II to XII, upper and lower extremity motor and sensory, and cognition, although he is somewhat sedated from medication he received last night. 12/13/2020 06:20 CT of the head without contrast demonstrates a right parietal scalp laceration and small hematoma. There is also a tiny foci of an acute subarachnoid hemorrhage in the right parietal lobe sulcus. No other acute abnormalities found. I called and discussed this with the [facility] in [place] is psychiatrist on duty, Dr. Mary will talk with the crew to see if the patient is still acceptable for transfer versus having to arrange for him to go somewhere where there be neurosurgical care. It is unlikely that the patient will have any significant intervention with a small of a subarachnoid and will probably simply need to have a rescan of his brain tomorrow. They will contact me this morning to let me know before we send him. Medical Clearance: 12/13/20 01:08 patient is medically cleared for inpatient psychiatric admission. Discharge vs Psych Eval/Treatment:: 12/13/20 01:08 we will try to arrange for transfer the patient to the inpatient psychiatric department at the [facility] in [place]. Information has been faxed to them for consideration. 12/13/20 05:30 the [facility] in [place] called and said that they do not have bed availability for inpatient psychiatry at this time. I then reached out again to the [facility] in [place]. I discussed the case with Dr. Mary, psychiatrist on duty who is reviewing the records and will let us know if they feel that he is appropriate for their facility. 12/13/20 07:35 the [facility] called back and Dr. Mary accepts the patient in transfer for admittance to the [facility] inpatient psychiatry unit. The patient will be going to . Departure - Departure Time of Disposition: 07:37 Disposition: DC/Tfer to Psych Hosp/Unit 65 Clinical Impression: Acute psychosis, Homicidal ideation, PTSD (post-traumatic stress disorder), Self-harm, Subarachnoid hemorrhage Dementia Qualifiers: Dementia type: unspecified type Dementia behavioral disturbance: with behavioral disturbance Qualified Code(s): F03.91 - Unspecified dementia with behavioral disturbance Fall from standing Qualifiers: Encounter type: initial encounter Qualified Code(s): W19.XXXA - Unspecified fall, initial encounter Laceration of scalp Qualifiers: Encounter type: initial encounter Qualified Code(s): S01.01XA - Laceration without foreign body of scalp, initial encounter - Discharge Information Referrals: PCP,Unknown [Primary Care Provider] - Forms: ED Department Discharge Sepsis Event Note (ED) - Evaluation Sepsis Screening Result: No Definite Risk - Focused Exam Vital Signs: Vital Signs Temp Pulse Resp BP Pulse Ox 12/13/20 07:07 36.7 C 70 15 159/72 H 97 12/13/20 06:53 36.8 C 64 10 L 141/80 H 100 12/13/20 06:08 62 12 180/79 H 100 12/13/20 05:55 62 15 179/83 H 97 12/13/20 05:44 36.4 C 64 14 148/74 H 98 12/12/20 22:03 37.1 C 95 20 174/105 H 96 12/12/20 21:59 37.1 C 95 20 174/105 H 96 - Problem List & Annotations (1) Acute psychosis SNOMED Code(s): 50545462, 07022619 Code(s): F23 - BRIEF PSYCHOTIC DISORDER Status: Acute Priority: High Current Visit: Yes (2) Dementia SNOMED Code(s): 29619845 Code(s): F03.90 - UNSPECIFIED DEMENTIA WITHOUT BEHAVIORAL DISTURBANCE Status: Acute Priority: High Current Visit: Yes Qualifiers: Dementia type: unspecified type Dementia behavioral disturbance: with behavioral disturbance Qualified Code(s): F03.91 - Unspecified dementia with behavioral disturbance (3) Fall from standing SNOMED Code(s): 7538364 Code(s): W19.XXXA - UNSPECIFIED FALL, INITIAL ENCOUNTER Status: Acute Priority: High Current Visit: Yes Qualifiers: Encounter type: initial encounter Qualified Code(s): W19.XXXA - Unspecified fall, initial encounter (4) Homicidal ideation SNOMED Code(s): 907811551 Code(s): R45.850 - HOMICIDAL IDEATIONS Status: Acute Priority: High Current Visit: Yes (5) Laceration of scalp SNOMED Code(s): 102779096 Code(s): S01.01XA - LACERATION WITHOUT FOREIGN BODY OF SCALP, INITIAL ENCOUNTER Status: Acute Priority: High Current Visit: Yes Qualifiers: Encounter type: initial encounter Qualified Code(s): S01.01XA - Laceration without foreign body of scalp, initial encounter (6) PTSD (post-traumatic stress disorder) SNOMED Code(s): 71327629 Code(s): F43.10 - POST-TRAUMATIC STRESS DISORDER, UNSPECIFIED Status: Acute Priority: High Current Visit: Yes (7) Subarachnoid hemorrhage SNOMED Code(s): 324349002 Code(s): I60.9 - NONTRAUMATIC SUBARACHNOID HEMORRHAGE, UNSPECIFIED Status: Acute Priority: High Current Visit: Yes - Problem List Review Problem List Initiated/Reviewed/Updated: Yes
[2020-12-12] MEDS ORDERED: LORazepam 2 MG/ML SDV IM ONE (23:05)
[2020-12-12] MEDS ORDERED: diphenhydrAMINE 50 MG/ML SDV IM ONE ×2 (23:05→23:55)
[2020-12-12] MEDS ORDERED: Haloperidol Lactate 5 MG/ML SDV IM ONE ×2 (23:05→23:55)
[2020-12-12] MEDS ORDERED: OLANZapine 10 MG Vial IM ONE ×2 (23:05→23:55)
[2020-12-12] MEDS ORDERED: hydrOXYzine HCl 25 MG Tab PO ONE (23:33)
[2020-12-12] MEDS ORDERED: Diazepam 5 MG Tab PO ONE (23:33)
[2020-12-12] MEDS ORDERED: LORazepam 2 MG/ML SDV IM STA (23:55)
--- NOTE | 2020-12-13 06:47 | CRLCT ---
For Patients: As a result of the Century Cures Act, medical imaging exams and procedure reports are released immediately into your electronic medical record. You may view this report before your referring provider. If you have questions, please contact your health care provider. INDICATION: Head injury. TECHNIQUE: CT head without contrast. COMPARISON: October 25, 2020. FINDINGS: CSF spaces: Within normal limits for age. Brain parenchyma and extra-axial spaces: Tiny focal acute subarachnoid hemorrhage is present in a right posterior parietal sulcus best visualized on the coronal series 5, image 82. No other sign of intracranial hemorrhage. Hanson-white matter distinction is intact. No mass effect or midline shift. Skull base and calvarium: The visualized paranasal sinuses and mastoid air cells demonstrate no acute or significant findings. The visualized orbits are grossly unremarkable. No skull fractures. Right parietal scalp laceration present. IMPRESSION: Right parietal scalp laceration with a single tiny acute subarachnoid hemorrhage in the right parietal lobe sulcus. No other acute or significant findings. Please note that all CT scans at this facility use dose modulation, iterative reconstruction, and/or weight-based dosing when appropriate to reduce radiation dose to as low as reasonably achievable. Dictated by Teofilo Roberson MD @ 12/13/2020 6:46:[address] Teofilo Roberson @ Dec 13 2020 6:46AM
== END 2020-12-13 09:20 ==
LOC: JP.ED 21:52
DX: S06.6X0A Traumatic subarachnoid hemorrhage without loss of consciousness, initial encounter (principal); S01.01XA Laceration without foreign body of scalp, initial encounter; F23 Brief psychotic disorder; F03.91 Unspecified dementia, unspecified severity, with behavioral disturbance; F43.10 Post-traumatic stress disorder, unspecified; E78.00 Pure hypercholesterolemia, unspecified; I10 Essential (primary) hypertension; K21.9 Gastro-esophageal reflux disease without esophagitis; Z79.82 Long term (current) use of aspirin; Z79.899 Other long term (current) drug therapy; Z20.822 Contact with and (suspected) exposure to COVID-19; W18.39XA Other fall on same level, initial encounter; Y92.009 Unspecified place in unspecified non-institutional (private) residence as the place of occurrence of the external cause
CPT/HCPCS: 12002; 36415; 70450; 80053; 80305; 80307; 81001; 84443; 85025; 87635; 96372; 99285; J1200; J1630; J2060; J3490; U0002

== ENCOUNTER 2021-07-31 16:45 | Emergency (ER) | payer OTHER | END 2021-07-31 18:46 | disposition home or self-care (01) | LOC: JP.ED 16:45 | DX: R33.9 Retention of urine, unspecified (principal); E78.00 Pure hypercholesterolemia, unspecified; I10 Essential (primary) hypertension; K21.9 Gastro-esophageal reflux disease without esophagitis; Z79.82 Long term (current) use of aspirin; Z79.899 Other long term (current) drug therapy; Z72.0 Tobacco use | CPT/HCPCS: 51798; 81001; 99281; 99283-25 ==

== ENCOUNTER 2022-01-01 17:03 | Emergency (ER) | payer OTHER | END 2022-01-01 18:37 | disposition home or self-care (01) | LOC: JP.ED 17:03 | DX: E87.1 Hypo-osmolality and hyponatremia (principal); I10 Essential (primary) hypertension; F17.210 Nicotine dependence, cigarettes, uncomplicated; Z79.899 Other long term (current) drug therapy; Z79.82 Long term (current) use of aspirin | CPT/HCPCS: 36415; 80048; 99284 ==

== ENCOUNTER 2023-02-25 10:30 | Emergency (ER) | payer OTHER ==
[2023-02-25] MEDS ORDERED: propofoL 100 ML ONE (10:44)
[2023-02-25] MEDS: Etomidate 2 MG/ML 10 ML SDV IVPUSH ONE ×2 (10:47→10:48)
[2023-02-25] MEDS ORDERED: Propofol 200 MG/20 ML SDV IVPUSH ONE (10:51)
[2023-02-25] MEDS ORDERED: propofoL 100 ML IV SCH (10:52)
[2023-02-25] MEDS ORDERED: Sodium Chloride 0.9% 1,000 ML IV ONE ×2 (10:58→11:09)
[2023-02-25] MEDS ORDERED: Sodium Chloride 0.9% 10 ML Syringe FLUSH PRN (10:59)
[2023-02-25] MEDS ORDERED: Norepinephrine Bit/D5W Premix 4 MG in Premix Bag 1 BAG IV SCH (11:03)
[2023-02-25 11:04] LABS: BASOPHILS ABSOLUTE AUTO 0.06 K/uL (0.00-0.10); BASOPHILS PERCENT AUTO 0.3 % (0.1-1.3); EOSINOPHILS ABSOLUTE AUTO 0.02 K/uL (0.00-0.40); EOSINOPHILS PERCENT AUTO 0.1 % (0.0-5.4); HEMATOCRIT 45.9 % (38.4-49.7); HEMOGLOBIN 15.2 g/dL (12.9-16.9); IMMATURE GRAN ABSOLUTE AUTO 0.14 K/uL (0.00-0.23); IMMATURE GRAN PERCENT AUTO 0.6 % (0.0-0.7); LYMPHOCYTES ABSOLUTE AUTO 1.49 K/uL (0.8-3.3); LYMPHOCYTES PERCENT AUTO 6.5 % (11.4-47.7); MEAN CORPUSCULAR HEMOGLOBIN 30.8 pg (31.6-35.5); MEAN CORPUSCULAR HGB CONC 33.1 g/dL (31.6-35.5); MEAN CORPUSCULAR VOLUME 93.1 fL (81.4-99.0); MONOCYTES ABSOLUTE AUTO 1.87 K/uL (0.20-0.90); MONOCYTES PERCENT AUTO 8.2 % (3.3-12.6); NEUTROPHILS ABSOLUTE AUTO 19.36 K/uL (1.0-7.6); NEUTROPHILS PERCENT AUTO 84.3 % (40.0-78.1); PLATELET COUNT,PLT 304 K/uL (130-375); RED BLOOD CELL COUNT 4.93 M/uL (4.14-5.76); WHITE BLOOD CELL COUNT,WBC 22.9 K/uL (3.2-11.0)
[2023-02-25] MEDS ORDERED: DOPamine/Dextrose 5%-Water 400 MG/250 ML BAG IV SCH (11:30)
[2023-02-25 11:31] LABS: A/G RATIO 1.1 (1.2-2.2); ALANINE AMINOTRANSFERASE,ALT 91 U/L (12-78); ALBUMIN 3.6 g/dL (3.4-5.0); ALKALINE PHOSPHATASE 117 U/L (46-116); ASPARTATE AMNIOTRANSFERASE,AST 136 U/L (15-37); BILIRUBIN TOTAL 0.8 mg/dL (0.2-1.0); BLOOD UREA NITROGEN,BUN 28 mg/dL (7-18); CALCIUM 9.1 mg/dL (8.5-10.1); CARBON DIOXIDE,CO2 17 mmol/L (21-32); CHLORIDE,CL 98 mmol/L (100-108); CREATININE 2.9 mg/dL (0.8-1.3); ESTIMATED GFR 21 mL/min (>60); GLUCOSE RANDOM 138 mg/dL (74-106); POTASSIUM,K 4.4 mmol/L (3.6-5.2); PROTEIN TOTAL,TP 6.9 g/dL (6.4-8.2); SODIUM,NA 139 mmol/L (140-148)
[2023-02-25 11:31] LABS: INR 1.2; PROTHROMBIN TIME 12.3 sec (9.2-10.6); PTT,PARTIAL THROMBOPLSTIN TIME 28.6 sec (21.8-27.3)
[2023-02-25 11:32] LABS: ANION GAP 28.4 mmol/L (5.0-14.0)
[2023-02-25 11:46] LABS: BASE EXCESS ARTERIAL,ISTAT -15 mmol/L (-2-3); HEMATOCRIT,ISTAT 37 % (36-48); O2 SATURATION ARTERIAL,ISTAT 99 % (95-98); PCO2 ARTERIAL,ISTAT 21.1 mmHG (35-45); PH ARTERIAL,ISTAT 7.33 (7.35-7.45); PO2 ARTERIAL,ISTAT 143 mmHg (80-105); POTASSIUM,ISTAT 4.6 mmol/L (3.5-4.9); SODIUM,ISTAT 136 mmol/L (140-148); TCO2 ARTERIAL,ISTAT 12 mmol/L (23-27)
[2023-02-25] MEDS ORDERED: LORazepam 2 MG/ML SDV IVPUSH ONE (11:46)
[2023-02-25] MEDS ORDERED: Morphine 10 MG/ML Syringe IVPUSH ONE ×2 (11:46→12:13)
[2023-02-25] MEDS ORDERED: Heparin Sodium 5,000 UNITS in Sodium Chloride 0.9% 500 ML IV SCH (12:00)
== END 2023-02-25 14:28 | disposition expired ==
LOC: JP.ED 10:30
DX: I10 Essential (primary) hypertension; E78.00 Pure hypercholesterolemia, unspecified; K21.9 Gastro-esophageal reflux disease without esophagitis; Z79.82 Long term (current) use of aspirin; Z79.899 Other long term (current) drug therapy
CPT/HCPCS: 31500; 36415; 36600; 36680; 43752; 51702; 71045; 71045-26; 80053; 82803; 83605; 84145; 84484; 85025; 85610; 85730; 93005; 93010; 96365; 96368; 96375; 99285; 99285-25; J1265; J2060; J2270; J2704; J3490; J7030